=== PATIENT | male | born 1960 | race Two or more races ===

== ENCOUNTER 2019-03-04 07:14 | Inpatient (IN) | payer SELFPAY ==
[2019-03-04] VITALS (24 sets, daily range): BP systolic 102–175; BP diastolic 49–97
[~2019-03-04] VITALS: Ht 188 cm; Wt 74.1 kg
[2019-03-04 07:56] LABS: BASOPHILS % 0.7 % (0.0-2.0); EOSINOPHILS % 6.7 % (0.0-5.0); HEMATOCRIT. 46.5 % (42.0-52.0); LYMPHOCYTES % 10.8 % (20.0-50.0); MEAN CORPUSCULAR HEMOGLOBIN 27.2 pg (28.0-32.0); MEAN CORPUSCULAR VOLUME 84.4 fL (80.0-94.0); MONOCYTES % 8.1 % (2.0-8.0); NEUTROPHILS % 73.7 % (40.0-76.0); PLATELET 263 x1000/uL (130-400); RED CELL DISTRIBUTION WIDTH 14.9 % (11.6-14.6)
[2019-03-04 08:02] LABS: CHLORIDE 103 mEq/L (98-107)
[2019-03-04] MEDS ORDERED: GADOBENATE DIMEGLUMINE 529 MG/ML 10ML IV ONE (12:06)
[2019-03-04] MEDS ORDERED: DEXAMETHASONE 10 MG/ML VIAL IV ONE (12:45)
[2019-03-04] MEDS ORDERED: ACETAMINOPHEN 325MG TABLET PO PRN (13:45)
[2019-03-04] MEDS ORDERED: ONDANSETRON HCL 4MG/2ML INJ IV PRN (13:45)
[2019-03-04 15:18] LABS: CLARITY URINE CLEAR (CLEAR); COLOR URINE YELLOW (YELLOW); KETONES URINE 2+ (NEGATIVE); LEUKOCYTE ESTERASE URINE NEGATIVE (NEGATIVE); NITRITE URINE NEGATIVE (NEGATIVE); OCCULT BLOOD URINE NEGATIVE (NEGATIVE); PROTEIN URINE NEGATIVE (NEGATIVE); SPECIFIC GRAVITY URINE 1.018 (1.005-1.030); UROBILINOGEN URINE 0.2 E.U./dL (0.2-1.0)
[2019-03-04 15:42] LABS: *AMPHETAMINES SCREEN URINE NEGATIVE (NEGATIVE)
[2019-03-04 15:43] LABS: *BARBITURATES SCREEN URINE NEGATIVE (NEGATIVE); *BENZODIAZEPINES SCREEN URINE NEGATIVE (NEGATIVE); *COCAINE SCREEN URINE NEGATIVE (NEGATIVE); CANNABINOID URINE SCREEN NEGATIVE (NEGATIVE); METHADONE URINE SCREEN NEGATIVE (NEGATIVE); OPIATES URINE SCREEN NEGATIVE (NEGATIVE); PHENCYCLIDINE URINE SCREEN NEGATIVE (NEGATIVE)
[2019-03-04] MEDS ORDERED: NICARDIPINE 100 MG in SODIUM CHLORIDE 0.9% 60 ML IV PRN (17:45)
[2019-03-04] MEDS: DEXT 5%/LACTATED RINGERS 1,000 ML IV SCH (17:45)
[2019-03-04] MEDS: DEXAMETHASONE 4MG/ML 1ML VIAL IV SCH ×2 (19:24→23:34)
[2019-03-04] MEDS: LEVETIRACETAM 500 MG in SODIUM CHLORIDE 0.9% 100 ML IV SCH (20:53)
[2019-03-05] VITALS (34 sets, daily range): BP systolic 91–154; BP diastolic 48–99
[2019-03-05] MEDS: HYDROCODONE/ACETAMINOPHEN 5/325MG TABLET PO PRN ×2 (00:29→15:53)
[2019-03-05 05:54] LABS: CHLORIDE 102 mEq/L (98-107)
[2019-03-05 05:56] LABS: HEMATOCRIT. 42.8 % (42.0-52.0); HEMOGLOBIN. 14.3 g/dL (14.0-18.0); MEAN CORPUSCULAR HEMOGLOBIN 27.7 pg (28.0-32.0); MEAN CORPUSCULAR VOLUME 83.1 fL (80.0-94.0); MEAN PLATELET VOLUME 8.1 fl (7.4-10.4); PLATELET 285 x1000/uL (130-400); RED BLOOD CELL COUNT 5.15 mill/uL (4.7-6.1); RED CELL DISTRIBUTION WIDTH 14.6 % (11.6-14.6)
[2019-03-05] MEDS: DEXAMETHASONE 4MG/ML 1ML VIAL IV SCH ×3 (05:58→17:50)
[2019-03-05 07:25] LABS: PLATELET ESTIMATE NORMAL
[2019-03-05] MEDS: LEVETIRACETAM 500 MG in SODIUM CHLORIDE 0.9% 100 ML IV SCH (08:38)
[2019-03-05] MEDS ORDERED: IPRATROPIUM/ALBUTEROL 0.5-3(2.5)MG/3ML NEB HHN PRN (12:45)
[2019-03-05] MEDS: DEXT 5%/LACTATED RINGERS 1,000 ML IV SCH (14:33)
== END 2019-03-05 19:00 | disposition left against medical advice (07) | DRG 136 ==
LOC: ER 07:14 → 6EST 13:03 → EDBEDREQ 13:07 → EDBEDREQTM 13:07 → ENRESERV 14:09 → MICUSO 18:30
PROVIDERS: ADMIT Internal Medicine Nephrology; ATTEND Internal Medicine Nephrology
DX: C34.31 Malignant neoplasm of lower lobe, right bronchus or lung (principal); G93.6 Cerebral edema; C79.31 Secondary malignant neoplasm of brain; E27.9 Disorder of adrenal gland, unspecified; F17.210 Nicotine dependence, cigarettes, uncomplicated; I10 Essential (primary) hypertension; K40.90 Unilateral inguinal hernia, without obstruction or gangrene, not specified as recurrent; K80.20 Calculus of gallbladder without cholecystitis without obstruction; Z80.0 Family history of malignant neoplasm of digestive organs
CPT/HCPCS: 36415; 70553; 71045; 71250; 74176; 80048; 80305; 82962; 84484; 93005; 93970; 96365; 96375; 99285; A9577; J1100; J1953; J7050